=== PATIENT | male | born 1975 | race Caucasian/White ===

== ENCOUNTER 2023-10-15 16:16 | Emergency (ER) | payer BC, SELFPAY ==
[2023-10-15 16:21] VITALS: BP 129/85; BMI 44.5
[2023-10-15 16:40] LABS: % Basophils 0.9 % (0-2); % Immature Granulocytes 0.3 % (0-0.5); % Lymphocytes 25.7 % (20.5-51.1); % Monocytes 5.7 % (1.7-9.3); % Neutrophils 64.4 % (42.2-75.2); Absolute Basophils 0.1 10^3/uL (0-0.2); Absolute Eosinophils 0.3 10^3/uL (0-0.7); Absolute Lymphocytes 2.5 10^3/uL (1.2-3.4); Absolute Monocytes 0.6 10^3/uL (0.1-0.6); Absolute Neutrophils 6.3 10^3/uL (1.4-6.5); Hematocrit 40.3 % (39.0-52.0); Hemoglobin 13.4 g/dL (13.0-18.0); Mean Corp Hgb Conc. 33.3 g/dL (33.0-37.0); Mean Corpuscular Hgb 26.3 pg (27.0-31.0); Mean Corpuscular Volume 79.2 fL (80.0-94.0); Mean Platelet Volume 9.5 fL (7.4-10.4); Nucleated Red Blood Cells % 0 % (-); Platelet Count 320 10^3/uL (130-400); Red Blood Cell Count 5.09 10^6/uL (4.70-6.10); Red Cell Dist. Width 13.3 % (11.5-14.5); White Blood Cell Count 9.8 10^3/uL (4.8-10.8)
[2023-10-15 16:57] LABS: ALT (SGPT) 31 U/L (0-50); AST (SGOT) 26 U/L (17-59); Albumin 4.5 g/dl (3.5-5.0); Alkaline Phosphatase 70 U/L (38-126); Blood Urea Nitrogen 24 mg/dl (9-20); Calcium 10.2 mg/dl (8.4-10.2); Carbon Dioxide 24 mmol/L (22-30); Chloride 107 mmol/L (98-107); Creatine Phosphokinase 134 U/L (55-170); Estimated Creatinine Clearance > 125 ml/min; Glucose 107 mg/dl (70-99); Sodium 137 mmol/L (135-145); Total Bilirubin 0.4 mg/dl (0.2-1.3); Total Protein 7.2 g/dl (6.3-8.2); eGFR > 60.00
[2023-10-15 17:05] LABS: Troponin I < 0.012 ng/ml
--- NOTE | 2023-10-15 18:12 | ED.GENMED ---
History of Present Illness
General
Chief Complaint: BURN-MINOR
Source: patient
Exam Limitations: none
Time Seen by Provider: 10/15/23 18:01
Travel History
Have you had any contact with someone who has COVID-19?: No
Do you have any symptoms of coronavirus? Fever > 100 degrees, chills, cough, shortness of breath, sore throat, loss of taste or smell, muscle aches, or headache?: No
History of Present Illness
History of Present Illness:
This is a 48 year old male that comes in with c/o electrical shock. States that he was working on a pump and he got a shock that went through his left second finger up his arm and across his chest in to the left arm. States that this was about 600V.
States that this happened around 1pm. States that in the middle of his upper back it feels know like the muscles are night and it is in side. Denies any exit wound. Denies any fever, chills, chest pain, SOB, abd pain, nausea, vomiting, headache,
dizziness, urinary burning.
Past History
Past History
ED Past Medical History: HTN, Psychiatric (Depression) and Other (Sleep apnea); Negative Hypercholesterolemia, IDDM or NIDDM
ED Past Surgical History: Tonsilectomy; Negative Cardiac
Social History
Tobacco: Former smoker
Alcohol: Occasional
Drug: None
Personal: Single
Living: alone
Employment: Employed
Family History
Family History: Other (Noncontributory)
Review of Systems
Review of Systems
All Other Systems: ROS reviewed and negative except as documented in HPI and ROS
Constitutional: Reports no symptoms; Denies fever or chills
EENT: Reports no symptoms
Respiratory: Reports no symptoms; Denies cough or trouble breathing
Cardiac: Reports no symptoms; Denies chest pain
ABD/GI: Reports no symptoms; Denies abdominal pain, nausea, vomiting or diarrhea
: Reports no symptoms; Denies dysuria, frequency or urgency
Musculoskeletal: Reports no symptoms
Skin: Reports other (Shock through left second finger.)
Neurological: Reports no symptoms; Denies dizzy or headache
Psychiatric: Reports no symptoms
Phy Exam
General Physical Exam
General Presentation: well appearing and no apparent distress
General age: appears stated age
General Skin: warm and dry
General Habitus: normal
General Mental: alert
General Hydration: appears well hydrated
ENT Exam
ENT Exam: TM's normal, pharynx normal and neck supple
Eye Exam
Eye Exam: EOMI
Cardiovascular Exam
Cardiovascular Exam: regular rate/rhythm, no edema, no murmur and normal peripheral pulses
Pulmonary Exam
Pulmonary Exam: lungs clear, no respiratory distress, no rales, chest non tender, no crackles, no rhonchi, no wheezing and no cough
Musculoskeletal Exam
Musculoskeletal Exam: full ROM and no edema
Skin Exam
Skin Exam: normal color, warm/dry, no rash, no petechia and other (Abrasion noted on the right knuckle and very superficial white spot noted on left second finger with abrasion at tip. )
Psychiatric Exam
Psychiatric Exam: normal mood/affect
Course
Orders/Labs/Results
Orders:
Orders
10/15/23 16:25
Electrocardiogram (*1) Urgent
Reason for Study: Chest Pain
EKG- Treatment ONCE
10/15/23 16:33
CPK [Creatine Phosphokinase] Urgent
Complete Blood Count/With Diff Urgent
Comprehensive Metabolic Panel Urgent
Troponin I Urgent
10/15/23 18:11
Ibuprofen [Motrin] 600 mg PO NOW STA
10/15/23 18:[address] Non Medication Order As Directed
Physician Order: Please give him water to drink
Above order entered?: Yes
10/15/23 19:31
Troponin I Urgent
Abnormal Lab Results
10/15/23
16:33
MCV 79.2 L fL
(80.0-94.0)
MCH 26.3 L pg
(27.0-31.0)
BUN 24 H mg/dl
(9-20)
Glucose 107 H mg/dl
(70-99)
10/15/23 16:33
10/15/23 16:33
Dehydration. Glucose nonfasting. Troponin <0.012
Second Troponin <0.012
Vital Signs
Initial and Last Documented VS:
Initial Vital Signs
Temp Pulse Resp BP Pulse Ox
98.3 F 64 16 129/85 98
10/15/23 16:21 10/15/23 16:21 10/15/23 16:21 10/15/23 16:21 10/15/23 16:21
Last Documented Vital Signs
Temp Pulse Resp BP Pulse Ox
98.3 F 64 16 129/85 98
10/15/23 16:21 10/15/23 16:21 10/15/23 16:21 10/15/23 16:21 10/15/23 16:21
MDM/Problems Addressed
Differential Diagnosis Includes:
Electrical shock
MDM/Problems Addressed:
This is a 48 year old male that comes in with c/o electrical shock in the left second finger. States that he felt this go into his arm, across his chest and down the right arm. States that it was 600V and that he was shaking. State that he just
wanted to be checked to make sure he was oK.
Will get labs, ECG and Troponin.
Back into see patient. Explained that the second troponin is also normal. Patient can use Ibuprofen for any musculoskeletal pain. Follow up with the family doctor. Return with any concerns.
Chronic conditions affecting care:
NA
Acute Exacerbation and/or Progression of Chronic Illness:
NA
*Pulse Oximetry
Patient hypoxic: no
*EKG
Interpreted by ED Provider?: Yes
Heart Rate: 58
Rate: bradycardiac
Rhythm: sinus
[place]: normal axis
Interval: normal interval
QRS Pattern: normal QRS
Ischemia: no ischemia
*Board Attendant Interpretation
Rate: Board Attendant- N/A
*Critical Care Note
Total Time (30-74mins, 75-104mins- exclusive of procedures): Not Applicable
ED Attending Note
-
Portions of this chart may have been created with voice recognition software.� Occasional wrong word or��sound alike� substitutions may have occurred due to the inherent limitations of voice recognition software.
Discharge Plan
Departure
Patient Disposition: Home (Routine Discharge)
Date of Disposition: 10/15/23
Time of Disposition: 20:06
Patient with high blood pressure during this ER visit?: No
Condition: Good
Covid-19: Not Applicable
Discharge Problem:
Electric shock
Instructions: Electrical Shock (DC)
Prescriptions:
No Action
hydrocodone-acetaminophen [Vicodin] 1 EACH tablet
1 ea PO .Q4-6HPRN Qty: 12 0RF
alum-mag hydroxide-simeth [Mag-Al Plus] 1 ML suspension
10 - 15 ml PO TID Qty: 6 0RF
ibuprofen 600 MG tablet
600 mg PO Q6H Qty: 30 0RF
Referrals:
Charles Wright MD [Family Provider] - Call in 1-3 days for appt
Activity Restrictions/Additional Instructions:
As discussed, your blood work shows dehydration. Please increase your water intake to 8-8oz glasses daily. Your Troponin which is specific for the heart is normal. You may use Ibuprofen for any muscle discomfort. Follow up with the family doctor
for recheck. IF YOU HAVE ANY OTHER CONCERNS PLEASE RETURN TO THE EMERGENCY ROOM.
Interventions
Interventions:
*Risk Screen - Suicide Last Done: 10/15/23 16:21
*General Assessment Last Done: 10/15/23 18:21
*Neglect/Abuse Screening Last Done: 10/15/23 16:21
ED- Fall Risk Assessment Last Done: 10/15/23 18:22
*ED COVID-19 Vaccine History Last Done: 10/15/23 16:21
ED-Skin Assessment Last Done: 10/15/23 18:22
Discharge Date and Time
Print Language: CROATIAN
[2023-10-15] MEDS: MOTRIN 600 MG PO (18:20)
[2023-10-15 19:59] LABS: Troponin I < 0.012 ng/ml
== END 2023-10-15 20:14 | disposition home or self-care (01) ==
LOC: EMR 16:16
PROVIDERS: Clinical Nurse Specialist Family Health; Student in an Organized Health Care Education/Training Program; EMERGENCY PHYSICIAN Emergency Medicine; FAMILY PHYSICIAN Family Medicine
DX: T75.4XXA Electrocution, initial encounter (principal); W86.1XXA Exposure to industrial wiring, appliances and electrical machinery, initial encounter; Z87.891 Personal history of nicotine dependence; Y99.0 Civilian activity done for income or pay
CPT/HCPCS: 99284; 80053; 82550; 84484; 85025; 93005